=== PATIENT | female | born 1955 | race Caucasian/White ===

== ENCOUNTER 2016-12-12 15:38 | Inpatient (IN) | payer MEDICARE ==
[2016-12-12 17:22] LABS: Basophils % (Auto) 0.3 % (0.0-1.8); Eosinophils % (Auto) 0.7 % (0.0-4.3); Hematocrit 29.3 % (30.3-42.9); Hemoglobin 9.6 gm/dl (10.1-14.3); Mean Corpuscular HGB Conc 33 % (30-34); Mean Corpuscular Hemoglobin 31 pg (28-32); Mean Corpuscular Volume 94 fl (79-97); Platelet Count 145 K/mm3 (140-440); Red Cell Distribution Width 15.5 % (13.2-15.2); White Blood Count 6.8 K/mm3 (4.5-11.0)
--- NOTE | 2016-12-12 17:47 | Emergency Department Report ---
ED General Adult HPI - General Chief complaint: Altered Mental Status Stated complaint: AMS Time Seen by Provider: 12/12/16 17:36 Source: family, EMS Mode of arrival: Stretcher Limitations: Language Barrier - History of Present Illness Initial comments: Patient is a 61-year-old female past medical history of end-stage renal disease diabetes and hypertension who presents with hyper glycemia and altered mental status. History is obtained by daughter. History of some noted due to patient' s condition. Patient's granddaughter states that patient was only arousable to tactile stimuli she states that she doesn't know if her grandmother took any medications today and it she was moaning. Patient gets dialysis Thursday and she got dialysis on . Patient is [place]- speaking and responds when her granddaughter talks her. - Related Data Home Medications Medication Instructions Recorded Confirmed Last Taken Aspirin [Aspirin EC] 81 mg PO DAILY 12/12/16 12/12/16 Unknown AtorvaSTATin [Lipitor] 40 mg PO QHS 12/12/16 12/12/16 Unknown Carvedilol [Coreg] 12.5 mg PO BID 12/12/16 12/12/16 Unknown Furosemide [Lasix TAB] 40 mg PO BID 12/12/16 12/12/16 Unknown Gabapentin [Neurontin] 100 mg PO TID 12/12/16 12/12/16 Unknown ISOSORBIDE MONOnitrate [Imdur ER] 30 mg PO DAILY 12/12/16 12/12/16 12/12/16 Lisinopril [Zestril TAB] 20 tab PO DAILY 12/12/16 12/12/16 Unknown Plavix 75 mg PO DAILY 12/12/16 12/12/16 Unknown Ranitidine HCl [Zantac 150 MG TAB] 150 mg PO DAILY 12/12/16 12/12/16 Unknown Sevelamer Carbonate [Renvela] 800 mg PO AC 12/12/16 12/12/16 Unknown Spironolactone [Aldactone] 25 mg PO DAILY 12/12/16 12/12/16 Unknown dimenhyDRINATE [Motion Sickness] 50 mg PO DAILY 12/12/16 12/12/16 Unknown Allergies Allergy/AdvReac Type Severity Reaction Status Date / Time No Known Allergies Allergy Verified 12/12/16 16:18 ED Review of Systems ROS: Stated complaint: AMS Other details as noted in HPI Comment: Unobtainable due to pts medical conditions (altered mental status) ED Past Medical Hx - Past Medical History Previous Medical History?: Yes Hx Hypertension: Yes Hx CVA: Yes Hx Heart Attack/AMI: (Medically managed with no recent changes) Hx Congestive Heart Failure: Yes Hx Diabetes: Yes Hx Deep Vein Thrombosis: No Hx GERD: Yes Hx Liver Disease: No Hx Renal Disease: Yes Hx Sickle Cell Disease: No Hx Arthritis: Yes Hx Headaches / Migraines: Yes Hx Seizures: No Hx Asthma: No Hx COPD: No Hx HIV: No Additional medical history: GLAUCOMA. ANEMIA - Surgical History Hx Coronary Stent: No Hx Open Heart Surgery: No Hx Pacemaker: No Hx Internal Defibrillator: No Hx Cholecystectomy: No Hx Appendectomy: No Hx Breast Surgery: No Additional Surgical History: lung surgery (loculated pleural effusion? ), Cataract surgery - Social History Smoking Status: Never Smoker Substance Use Type: None - Medications Home Medications: Home Medications Medication Instructions Recorded Confirmed Last Taken Type Aspirin [Aspirin EC] 81 mg PO DAILY 12/12/16 12/12/16 Unknown History AtorvaSTATin [Lipitor] 40 mg PO QHS 12/12/16 12/12/16 Unknown History Carvedilol [Coreg] 12.5 mg PO BID 12/12/16 12/12/16 Unknown History Furosemide [Lasix TAB] 40 mg PO BID 12/12/16 12/12/16 Unknown History Gabapentin [Neurontin] 100 mg PO TID 12/12/16 12/12/16 Unknown History ISOSORBIDE MONOnitrate [Imdur ER] 30 mg PO DAILY 12/12/16 12/12/16 12/12/16 History Lisinopril [Zestril TAB] 20 tab PO DAILY 12/12/16 12/12/16 Unknown History Plavix 75 mg PO DAILY 12/12/16 12/12/16 Unknown History Ranitidine HCl [Zantac 150 MG TAB] 150 mg PO DAILY 12/12/16 12/12/16 Unknown History Sevelamer Carbonate [Renvela] 800 mg PO AC 12/12/16 12/12/16 Unknown History Spironolactone [Aldactone] 25 mg PO DAILY 12/12/16 12/12/16 Unknown History dimenhyDRINATE [Motion Sickness] 50 mg PO DAILY 12/12/16 12/12/16 Unknown History ED Physical Exam - General Limitations: Language Barrier General appearance: in no apparent distress, lethargic - Head Head exam: Present: atraumatic, normocephalic - Eye Eye exam: Present: normal appearance - ENT ENT exam: Present: mucous membranes moist - Neck Neck exam: Present: other (right neck swelling) - Respiratory Respiratory exam: Present: normal lung sounds bilaterally. Absent: respiratory distress - Cardiovascular Cardiovascular Exam: Present: regular rate, normal rhythm. Absent: systolic murmur, diastolic murmur, rubs, gallop - GI/Abdominal GI/Abdominal exam: Present: soft, normal bowel sounds - Extremities Exam Extremities exam: Present: other (left AV fistula) - Back Exam Back exam: Present: normal inspection - Neurological Exam Neurological exam: Present: altered - Psychiatric Psychiatric exam: Present: other (altered) - Skin Skin exam: Present: other (right heel dry gangrene). Absent: rash ED Course Vital Signs 12/12/16 12/12/16 12/12/16 18:01 18:15 18:30 Temperature Pulse Rate 63 68 63 Respiratory 17 17 15 Rate Blood Pressure 145/67 160/83 Blood Pressure [Left] O2 Sat by Pulse 100 100 100 Oximetry 12/12/16 12/12/16 12/12/16 18:45 19:21 19:30 Temperature Pulse Rate 62 63 64 Respiratory 20 28 H 15 Rate Blood Pressure 154/76 163/91 Blood Pressure [Left] O2 Sat by Pulse 100 100 100 Oximetry 12/12/16 12/12/16 12/12/16 19:45 20:01 20:15 Temperature Pulse Rate 64 65 64 Respiratory 14 14 15 Rate Blood Pressure 155/81 148/80 158/86 Blood Pressure [Left] O2 Sat by Pulse 100 100 100 Oximetry 12/12/16 12/12/16 12/12/16 20:25 20:31 20:45 Temperature Pulse Rate 64 65 65 Respiratory 11 L 14 Rate Blood Pressure 164/86 151/72 Blood Pressure [Left] O2 Sat by Pulse 99 100 Oximetry 12/12/16 12/12/16 12/12/16 21:00 21:15 21:21 Temperature 97.1 F L Pulse Rate 65 65 64 Respiratory 16 14 16 Rate Blood Pressure 161/108 171/90 Blood Pressure 163/84 [Left] O2 Sat by Pulse 100 100 100 Oximetry ED Medical Decision Making - Lab Data Result diagrams: 12/12/16 16:44 12/12/16 16:44 Labs 12/12/16 12/12/16 12/12/16 16:44 16:44 16:44 WBC 6.8 RBC 3.10 L Hgb 9.6 L Hct 29.3 L MCV 94 MCH 31 MCHC 33 RDW 15.5 H Plt Count 145 Lymph % (Auto) 13.8 [place] % (Auto) 6.4 Eos % (Auto) 0.7 Baso % (Auto) 0.3 Lymph # 0.9 L [place] # 0.4 Eos # 0.1 Baso # 0.0 Seg Neutrophils % 78.8 H Seg Neutrophils # 5.4 Sodium 129 L Potassium 5.1 H Chloride 86.6 L Carbon Dioxide 29 Anion Gap 19 BUN 39 H Creatinine 4.2 H Estimated GFR 11 BUN/Creatinine Ratio 9 Glucose 489 H POC Glucose Lactic Acid 1.40 Calcium 8.7 Magnesium 2.00 Total Bilirubin 0.30 AST 22 ALT 12 Alkaline Phosphatase 107 Total Protein 6.2 L Albumin 3.3 L Albumin/Globulin Ratio 1.1 TSH Urine Color Urine Turbidity Urine pH Ur Specific [place] Urine Protein Urine Glucose (UA) Urine Ketones Urine Blood Urine Nitrite Urine Bilirubin Urine Urobilinogen Ur Leukocyte Esterase Urine WBC (Auto) Urine RBC (Auto) Salicylates Urine Opiates Screen Urine Methadone Screen Acetaminophen Ur Barbiturates Screen Ur Phencyclidine Scrn Ur Amphetamines Screen U Benzodiazepines Scrn Urine Cocaine Screen U Marijuana (THC) Screen Drugs of Abuse Note Plasma/Serum Alcohol 12/12/16 12/12/16 12/12/16 16:44 16:44 16:44 WBC RBC Hgb Hct MCV MCH MCHC RDW Plt Count Lymph % (Auto) [place] % (Auto) Eos % (Auto) Baso % (Auto) Lymph # [place] # Eos # Baso # Seg Neutrophils % Seg Neutrophils # Sodium Potassium Chloride Carbon Dioxide Anion Gap BUN Creatinine Estimated GFR BUN/Creatinine Ratio Glucose POC Glucose Lactic Acid Calcium Magnesium Total Bilirubin AST ALT Alkaline Phosphatase Total Protein Albumin Albumin/Globulin Ratio TSH 3.850 Urine Color Urine Turbidity Urine pH Ur Specific [place] Urine Protein Urine Glucose (UA) Urine Ketones Urine Blood Urine Nitrite Urine Bilirubin Urine Urobilinogen Ur Leukocyte Esterase Urine WBC (Auto) Urine RBC (Auto) Salicylates < 0.3 L Urine Opiates Screen Urine Methadone Screen Acetaminophen < 15.0 Ur Barbiturates Screen Ur Phencyclidine Scrn Ur Amphetamines Screen U Benzodiazepines Scrn Urine Cocaine Screen U Marijuana (THC) Screen Drugs of Abuse Note Plasma/Serum Alcohol 12/12/16 12/12/16 12/12/16 16:44 18:19 19:16 WBC RBC Hgb Hct MCV MCH MCHC RDW Plt Count Lymph % (Auto) [place] % (Auto) Eos % (Auto) Baso % (Auto) Lymph # [place] # Eos # Baso # Seg Neutrophils % Seg Neutrophils # Sodium Potassium Chloride Carbon Dioxide Anion Gap BUN Creatinine Estimated GFR BUN/Creatinine Ratio Glucose POC Glucose 418 H Lactic Acid 1.30 Calcium Magnesium Total Bilirubin AST ALT Alkaline Phosphatase Total Protein Albumin Albumin/Globulin Ratio TSH Urine Color Urine Turbidity Urine pH Ur Specific [place] Urine Protein Urine Glucose (UA) Urine Ketones Urine Blood Urine Nitrite Urine Bilirubin Urine Urobilinogen Ur Leukocyte Esterase Urine WBC (Auto) Urine RBC (Auto) Salicylates Urine Opiates Screen Urine Methadone Screen Acetaminophen Ur Barbiturates Screen Ur Phencyclidine Scrn Ur Amphetamines Screen U Benzodiazepines Scrn Urine Cocaine Screen U Marijuana (THC) Screen Drugs of Abuse Note Plasma/Serum Alcohol < 0.01 12/12/16 12/12/16 12/12/16 20:15 Unknown Unknown WBC RBC Hgb Hct MCV MCH MCHC RDW Plt Count Lymph % (Auto) [place] % (Auto) Eos % (Auto) Baso % (Auto) Lymph # [place] # Eos # Baso # Seg Neutrophils % Seg Neutrophils # Sodium Potassium Chloride Carbon Dioxide Anion Gap BUN Creatinine Estimated GFR BUN/Creatinine Ratio Glucose POC Glucose 417 H Lactic Acid Calcium Magnesium Total Bilirubin AST ALT Alkaline Phosphatase Total Protein Albumin Albumin/Globulin Ratio TSH Urine Color Yellow Urine Turbidity Clear Urine pH 7.0 Ur Specific [place] 1.017 Urine Protein >500 Urine Glucose (UA) >=500 Urine Ketones Neg Urine Blood Neg Urine Nitrite Neg Urine Bilirubin Neg Urine Urobilinogen < 2.0 Ur Leukocyte Esterase Neg Urine WBC (Auto) < 1.0 Urine RBC (Auto) < 1.0 Salicylates Urine Opiates Screen Presumptive negative Urine Methadone Screen Presumptive negative Acetaminophen Ur Barbiturates Screen Presumptive negative Ur Phencyclidine Scrn Presumptive negative Ur Amphetamines Screen Presumptive negative U Benzodiazepines Scrn Presumptive negative Urine Cocaine Screen Presumptive negative U Marijuana (THC) Screen Presumptive negative Drugs of Abuse Note Disclamer Plasma/Serum Alcohol - EKG Data -: EKG Interpreted by Me - EKG Data 12/12/16 21:55 EKG shows sinus rhythm, LVH with secondary pole abnormality no peaked T waves no ST segment elevation normal axis. 12/12/16 21:56 - Radiology Data Radiology results: report reviewed, image reviewed Chest x-ray: Shows cardiomegaly and mid left lung effusion CT head: Shows no acute intracranial abnormality atrophy and chronic ischemic vessel disease. - Medical Decision Making Chief medical diagnosis: Metabolic encephalopathy Differential medical diagnosis: Subdural hemorrhage, hyperglycemia, DKA, pneumonia next CBC, CMP, EKG, troponin,, IV antibiotics, IV insulin and point of care glucose. Patient will need admission to the hospital patient most likely has metabolic encephalopathy due to hyperglycemia on repeat blood glucose testing patient spoke a first is still elevated we'll give patient for IV insulin discussed with Dr. billingsley the hospitalist patient will be admitted also discussed with patient's family they agree with plan. Patient will also need dialysis Thursday she does not need urgent dialysis as her potassium is only 5.1. The patient having left pleural effusion that is not seen on prior chest x-ray I will empirically treat patient for HCAP. Critical care attestation.: If time is entered above; I have spent that time in minutes in the direct care of this critically ill patient, excluding procedure time. ED Disposition Clinical Impression: Metabolic encephalopathy, ESRD on hemodialysis, Hyperglycemia, HCAP (healthcare -associated pneumonia) Type 2 diabetes mellitus Qualifiers: Diabetes mellitus complication status: without complication Diabetes mellitus usp insulin use: unspecified usp insulin use status Qualified Code(s ): E11.9 - Type 2 diabetes mellitus without complications Disposition: OP ADMIT IP TO THIS HOSP Is pt being admited?: Yes Does the pt Need Aspirin: No Condition: Stable Instructions: Diabetes Mellitus Type 2 in Adults (ED), Bacterial Pneumonia (ED) Referrals: PRIMARY CARE, [Primary Care Provider] - 3-5 Days
[2016-12-12 18:09] LABS: Albumin 3.3 g/dL (3.9-5); Albumin/Globulin Ratio 1.1 %; Bilirubin,Total 0.3 mg/dL (0.1-1.2); Calcium 8.7 mg/dL (8.4-10.2); Chloride 86.6 mmol/L (98-107); Potassium 5.1 mmol/L (3.6-5.0); Total Protein 6.2 g/dL (6.3-8.2)
--- NOTE | 2016-12-12 19:49 | Cat Scan Report ---
FINAL REPORT EXAM: CT HEAD/BRAIN WO CON HISTORY: altered mental status TECHNIQUE: Noncontrast CT axial images of the brain. PRIORS: None. FINDINGS: No parenchymal mass, mass effect, hemorrhage, midline shift or hydrocephalus. No evidence of acute cortical infarct. No abnormal, extra-axial fluid or air collection. Mild, patchy low density in the periventricular and subcortical white matter is nonspecific, but may relate to chronic small vessel ischemic change. Probable old lacunar infarct changes in the pontine region. Age-related volume loss. Osseous calvarium grossly intact. Possible mucous retention cyst versus polyp in the in the right inferior maxillary sinus or possible cystic versus solid entity of dental origin. Clinical correlation and followup may be warranted. IMPRESSION: 1. No acute intracranial findings. 2. Chronic ischemic and atrophic changes.
[2016-12-12 21:11] LABS: Urine Drugs of Abuse Note Disclamer
[2016-12-12 21:18] LABS: Bilirubin,Urine NEG (Negative); Blood,Urine NEG (Negative); Ketones,Urine NEG (Negative); Leukocyte Esterase,Urine NEG (Negative); Nitrite,Urine NEG (Negative); RBC,Urine < 1.0 /HPF (0.0-6.0); Urobilinogen,Urine < 2.0 mg/dL (<2.0); WBC,Urine < 1.0 /HPF (0.0-6.0)
[2016-12-12 21:19] LABS: Protein,Urine >500 mg/dL (Negative)
--- NOTE | 2016-12-12 21:50 | History and Physical Report ---
History of Present Illness Date of examination: 12/12/16 Chief complaint: Altered mental status History of present illness: Patient speak only and history is obtained from her granddaughter 61-year-old female with past medical history significant for end-stage renal disease on hemodialysis, diabetes mellitus, hypertension, CHF presented to the emergency department for the c/o altered mental status that happened around midday. All of a sudden the patient stopped responding, there is no seizure activity, no drooling with saliva, not incontinent, but had slurred speech after that. That has been going on for about 10 minutes. Patient normally doesn't ambulate and her upper and lower extremities are weak. REVIEW OF SYSTEMS: GENERAL: no weight change, no fatigue, no fever HEAD: no head ache EYES: no blurry vision, no acute visual loss EARS: no hearing loss, no discharge, no earache NOSE: no stuffiness, no sneezing, no discharge MOUTH, THROAT AND NECK: no bleeding gums, no sore throat, no swollen neck CARDIAC: no palpitations, no dyspnea on exertion, no orthopnea, no PND, no edema , no chest pain RESPIRATORY: no shortness of breath, no wheeze, no cough, no sputum, no hemoptysis, no asthma GI: no decreased appetite, no nausea, no vomiting, no dysphagia, no diarrhea, no constipation, no abdominal pain URINARY: no change in frequency, no urgency, no polyuria, no hematuria, no incontinence MUSCULOSKELETAL: no muscle weakness, no pain, no joint stiffness NEUROLOGIC: AMS HEMATOLOGIC: no anemia, no easy bruising SKIN: no rashes ENDOCRINE: no heat/cold intolerance, no polyuria, no polydipsia, no thyroid problems, no diabetes PSYCHIATRIC: no anxiety, no depression, no suicidal ideations Past History Past Medical History: ESRD, heart failure, hypertension Past Surgical History: Other (AVF, port cath) Social history: no significant social history Medications and Allergies Allergies Allergy/AdvReac Type Severity Reaction Status Date / Time No Known Allergies Allergy Verified 12/12/16 16:18 Home Medications Medication Instructions Recorded Confirmed Last Taken Type Aspirin [Aspirin EC] 81 mg PO DAILY 12/12/16 12/12/16 Unknown History AtorvaSTATin [Lipitor] 40 mg PO QHS 12/12/16 12/12/16 Unknown History Carvedilol [Coreg] 12.5 mg PO BID 12/12/16 12/12/16 Unknown History Furosemide [Lasix TAB] 40 mg PO BID 12/12/16 12/12/16 Unknown History Gabapentin [Neurontin] 100 mg PO TID 12/12/16 12/12/16 Unknown History ISOSORBIDE MONOnitrate [Imdur ER] 30 mg PO DAILY 12/12/16 12/12/16 12/12/16 History Lisinopril [Zestril TAB] 20 tab PO DAILY 12/12/16 12/12/16 Unknown History Plavix 75 mg PO DAILY 12/12/16 12/12/16 Unknown History Ranitidine HCl [Zantac 150 MG TAB] 150 mg PO DAILY 12/12/16 12/12/16 Unknown History Sevelamer Carbonate [Renvela] 800 mg PO AC 12/12/16 12/12/16 Unknown History Spironolactone [Aldactone] 25 mg PO DAILY 12/12/16 12/12/16 Unknown History dimenhyDRINATE [Motion Sickness] 50 mg PO DAILY 12/12/16 12/12/16 Unknown History Exam - Physical Exam Narrative exam: Not in cardiopulmonary distress. The patient appeared well nourished and normally developed. Vital signs as documented. Head exam is unremarkable. No scleral icterus . Neck is without jugular venous distension, thyromegaly, or carotid bruits. Lungs are clear to auscultation. Cardiac exam reveals regular rate and Rhythm. First and second heart sounds normal. No murmurs, rubs or gallops. Abdominal exam reveals normal bowel sounds, no masses, no organomegaly and no aortic enlargement. Extremities are nonedematous and both femoral and pedal pulses are normal. GEL[employer] UTILITY: patient is oriented to place and person. - Constitutional Vitals: Temp Pulse Resp BP Pulse Ox 97.1 F L 64 16 163/84 100 12/12/16 21:21 12/12/16 21:21 12/12/16 21:21 12/12/16 21:21 12/12/16 21:21 Results - Labs CBC & Chem 7: 12/12/16 16:44 12/12/16 16:44 Labs: Laboratory Last Values WBC 6.8 K/mm3 (4.5-11.0) 12/12/16 16:44 RBC 3.10 M/mm3 (3.65-5.03) L 12/12/16 16:44 Hgb 9.6 gm/dl (10.1-14.3) L 12/12/16 16:44 Hct 29.3 % (30.3-42.9) L 12/12/16 16:44 MCV 94 fl (79-97) 12/12/16 16:44 MCH 31 pg (28-32) 12/12/16 16:44 MCHC 33 % (30-34) 12/12/16 16:44 RDW 15.5 % (13.2-15.2) H 12/12/16 16:44 Plt Count 145 K/mm3 (140-440) 12/12/16 16:44 Lymph % (Auto) 13.8 % (13.4-35.0) 12/12/16 16:44 [place] % (Auto) 6.4 % (0.0-7.3) 12/12/16 16:44 Eos % (Auto) 0.7 % (0.0-4.3) 12/12/16 16:44 Baso % (Auto) 0.3 % (0.0-1.8) 12/12/16 16:44 Lymph # 0.9 K/mm3 (1.2-5.4) L 12/12/16 16:44 [place] # 0.4 K/mm3 (0.0-0.8) 12/12/16 16:44 Eos # 0.1 K/mm3 (0.0-0.4) 12/12/16 16:44 Baso # 0.0 K/mm3 (0.0-0.1) 12/12/16 16:44 Seg Neutrophils % 78.8 % (40.0-70.0) H 12/12/16 16:44 Seg Neutrophils # 5.4 K/mm3 (1.8-7.7) 12/12/16 16:44 Sodium 129 mmol/L (137-145) L 12/12/16 16:44 Potassium 5.1 mmol/L (3.6-5.0) H 12/12/16 16:44 Chloride 86.6 mmol/L (98-107) L 12/12/16 16:44 Carbon Dioxide 29 mmol/L (22-30) 12/12/16 16:44 Anion Gap 19 mmol/L 12/12/16 16:44 BUN 39 mg/dL (7-17) H 12/12/16 16:44 Creatinine 4.2 mg/dL (0.7-1.2) H 12/12/16 16:44 Estimated GFR 11 ml/min 12/12/16 16:44 BUN/Creatinine Ratio 9 % 12/12/16 16:44 Glucose 489 mg/dL (65-100) H 12/12/16 16:44 POC Glucose 417 (70-105) H 12/12/16 20:15 Lactic Acid 1.30 mmol/L (0.7-2.0) 12/12/16 19:16 Calcium 8.7 mg/dL (8.4-10.2) 12/12/16 16:44 Magnesium 2.00 mg/dL (1.7-2.3) 12/12/16 16:44 Total Bilirubin 0.30 mg/dL (0.1-1.2) 12/12/16 16:44 AST 22 units/L (5-40) 12/12/16 16:44 ALT 12 units/L (7-56) 12/12/16 16:44 Alkaline Phosphatase 107 units/L (35-129) 12/12/16 16:44 Total Protein 6.2 g/dL (6.3-8.2) L 12/12/16 16:44 Albumin 3.3 g/dL (3.9-5) L 12/12/16 16:44 Albumin/Globulin Ratio 1.1 % 12/12/16 16:44 TSH 3.850 mlU/mL (0.270-4.200) 12/12/16 16:44 Urine Color Yellow (Yellow) 12/12/16 Unknown Urine Turbidity Clear (Clear) 12/12/16 Unknown Urine pH 7.0 (5.0-7.0) 12/12/16 Unknown Ur Specific [place] 1.017 (1.003-1.030) 12/12/16 Unknown Urine Protein >500 mg/dL (Negative) 12/12/16 Unknown Urine Glucose (UA) >=500 mg/dL (Negative) 12/12/16 Unknown Urine Ketones Neg mg/dL (Negative) 12/12/16 Unknown Urine Blood Neg (Negative) 12/12/16 Unknown Urine Nitrite Neg (Negative) 12/12/16 Unknown Urine Bilirubin Neg (Negative) 12/12/16 Unknown Urine Urobilinogen < 2.0 mg/dL (<2.0) 12/12/16 Unknown Ur Leukocyte Esterase Neg (Negative) 12/12/16 Unknown Urine WBC (Auto) < 1.0 /HPF (0.0-6.0) 12/12/16 Unknown Urine RBC (Auto) < 1.0 /HPF (0.0-6.0) 12/12/16 Unknown Salicylates < 0.3 mg/dL (2.8-20.0) L 12/12/16 16:44 Urine Opiates Screen Presumptive negative 12/12/16 Unknown Urine Methadone Screen Presumptive negative 12/12/16 Unknown Acetaminophen < 15.0 ug/mL (10.0-30.0) 12/12/16 16:44 Ur Barbiturates Screen Presumptive negative 12/12/16 Unknown Ur Phencyclidine Scrn Presumptive negative 12/12/16 Unknown Ur Amphetamines Screen Presumptive negative 12/12/16 Unknown U Benzodiazepines Scrn Presumptive negative 12/12/16 Unknown Urine Cocaine Screen Presumptive negative 12/12/16 Unknown U Marijuana (THC) Screen Presumptive negative 12/12/16 Unknown Drugs of Abuse Note Disclamer 12/12/16 Unknown Plasma/Serum Alcohol < 0.01 gm% (0-0.07) 12/12/16 16:44 Assessment and Plan Assessment and plan: Metabolic encephalopathy TIA ESRD on hemodialysis DM with hyperglycemia CHF, unspecied HTN - CT head is significant for chronic ischemic changes - MRI, carotid Doppler, echo pending, neurology consulted - Nephrology consulted for hemodialysis - Resume appropriate medications - Sliding-scale insulin, basal insulin, Accu-Chek, adjust insulin as needed DVT prophylaxis - Heparin Disposition - Admitted to telemetry floor Advance Directives: Yes VTE prophylaxis?: Chemical Plan of care discussed with patient/family: Yes
[2016-12-12] MEDS ORDERED: ROCEPHIN/NS 1 GM/50 ML 1 GM/50 ML BAG IV ONE (21:58)
[2016-12-12] MEDS ORDERED: VANCOMYCIN VIAL IV ONE (21:58)
[2016-12-12] MEDS ORDERED: VANCOMYCIN PHARMACY TO DOSE IV SCH (22:00)
[2016-12-12] MEDS ORDERED: MILK OF MAGNESIA PO PRN (23:38)
[2016-12-12] MEDS ORDERED: SODIUM CHLORIDE FLUSH SYRINGE 10 ML IV PRN (23:38)
[2016-12-12] MEDS ORDERED: TYLENOL PO PRN (23:38)
[2016-12-12] MEDS ORDERED: PHENERGAN PR PRN (23:38)
[2016-12-12] MEDS ORDERED: ZOFRAN IV PRN (23:38)
[2016-12-12] MEDS ORDERED: DULCOLAX PR PRN (23:38)
[2016-12-12] MEDS ORDERED: REGLAN PO PRN (23:38)
[2016-12-13] MEDS ORDERED: D50W (25GM) Vial IV PRN (00:45)
[2016-12-13] MEDS ORDERED: VANCOMYCIN/NS 1 GM/250 ML 1 GM/250 ML BAG IV ONE ×2 (05:00)
--- NOTE | 2016-12-13 09:05 | Progress Note ---
Assessment and Plan Assessment and plan: 61-year-old female with past medical history significant for end-stage renal disease on hemodialysis, diabetes mellitus, hypertension, CHF presented to the emergency department for the c/o altered mental status that happened around midday. All of a sudden the patient stopped responding, there is no seizure activity, no drooling with saliva, not incontinent, but had slurred speech after that. That has been going on for about 10 minutes. Patient normally doesn't ambulate and her upper and lower extremities are weak. Metabolic encephalopathy-improved Hyponatremia-improving TIA ESRD on hemodialysis DM with hyperglycemia Chronic appearing bilateral leg wound with no infection- I spoke with daughter who states patient has a court reporter that cares for the feet and is aware of the wound. CHF, unspecified HTN - CT head is significant for chronic ischemic changes - Will contnue ASA and statin. - Stop abx, no evidence of infection,. Chest xray concerning for fluid overload. - CONTINUE LASIX, ALDACTONE - Wound care consult - MRI, carotid Doppler, echo pending, neurology consulted - Nephrology consulted for hemodialysis - Resume appropriate medications - Sliding-scale insulin, basal insulin, Accu-Chek, adjust insulin as needed DVT prophylaxis - Heparin Disposition - Discharge in AM if continues to improve History Interval history: Patient seen and examined today in no acute distress. she is now verabal and moving extermities. Hospitalist Physical - Physical exam Narrative exam: VITAL SIGNS: Reviewed. GENERAL: The patient appeared well nourished and normally developed. Vital signs as documented. HEAD: No signs of head trauma. EYES: Pupils are equal. Extraocular motions intact. EARS: Hearing grossly intact. MOUTH: Oropharynx is normal. NECK: No adenopathy, no JVD. CHEST: Chest with clear breath sounds bilaterally. No wheezes, rales, or rhonchi. CARDIAC: Regular rate and rhythm. S1 and S2, without murmurs, gallops, or rubs. VASCULAR: No Edema. Peripheral pulses normal and equal in all extremities. ABDOMEN: Soft, without detectable tenderness. No sign of distention. No rebound or guarding, and no masses palpated. Bowel Sounds normal. MUSCULOSKELETAL: Good range of motion of all major joints. Extremities without clubbing, cyanosis or edema. NEUROLOGIC EXAM: Alert and oriented x 3. No focal sensory or strength deficits. Speech normal. Follows commands. PSYCHIATRIC: Mood normal. SKIN: b/l heel necrotic tissue with no erythema, - Constitutional Vitals: Temp Pulse Resp BP Pulse Ox 99.3 F 70 18 158/81 96 12/13/16 05:24 12/13/16 05:24 12/13/16 05:24 12/13/16 05:24 12/13/16 05:24 Results - Labs CBC & Chem 7: 12/12/16 16:44 12/12/16 16:44 Labs: Laboratory Last Values WBC 6.8 K/mm3 (4.5-11.0) 12/12/16 16:44 RBC 3.10 M/mm3 (3.65-5.03) L 12/12/16 16:44 Hgb 9.6 gm/dl (10.1-14.3) L 12/12/16 16:44 Hct 29.3 % (30.3-42.9) L 12/12/16 16:44 MCV 94 fl (79-97) 12/12/16 16:44 MCH 31 pg (28-32) 12/12/16 16:44 MCHC 33 % (30-34) 12/12/16 16:44 RDW 15.5 % (13.2-15.2) H 12/12/16 16:44 Plt Count 145 K/mm3 (140-440) 12/12/16 16:44 Lymph % (Auto) 13.8 % (13.4-35.0) 12/12/16 16:44 [place] % (Auto) 6.4 % (0.0-7.3) 12/12/16 16:44 Eos % (Auto) 0.7 % (0.0-4.3) 12/12/16 16:44 Baso % (Auto) 0.3 % (0.0-1.8) 12/12/16 16:44 Lymph # 0.9 K/mm3 (1.2-5.4) L 12/12/16 16:44 [place] # 0.4 K/mm3 (0.0-0.8) 12/12/16 16:44 Eos # 0.1 K/mm3 (0.0-0.4) 12/12/16 16:44 Baso # 0.0 K/mm3 (0.0-0.1) 12/12/16 16:44 Seg Neutrophils % 78.8 % (40.0-70.0) H 12/12/16 16:44 Seg Neutrophils # 5.4 K/mm3 (1.8-7.7) 12/12/16 16:44 Sodium 129 mmol/L (137-145) L 12/12/16 16:44 Potassium 5.1 mmol/L (3.6-5.0) H 12/12/16 16:44 Chloride 86.6 mmol/L (98-107) L 12/12/16 16:44 Carbon Dioxide 29 mmol/L (22-30) 12/12/16 16:44 Anion Gap 19 mmol/L 12/12/16 16:44 BUN 39 mg/dL (7-17) H 12/12/16 16:44 Creatinine 4.2 mg/dL (0.7-1.2) H 12/12/16 16:44 Estimated GFR 11 ml/min 12/12/16 16:44 BUN/Creatinine Ratio 9 % 12/12/16 16:44 Glucose 489 mg/dL (65-100) H 12/12/16 16:44 POC Glucose 305 (70-105) H 12/12/16 22:55 Lactic Acid 1.30 mmol/L (0.7-2.0) 12/12/16 19:16 Calcium 8.7 mg/dL (8.4-10.2) 12/12/16 16:44 Magnesium 2.00 mg/dL (1.7-2.3) 12/12/16 16:44 Total Bilirubin 0.30 mg/dL (0.1-1.2) 12/12/16 16:44 AST 22 units/L (5-40) 12/12/16 16:44 ALT 12 units/L (7-56) 12/12/16 16:44 Alkaline Phosphatase 107 units/L (35-129) 12/12/16 16:44 Total Protein 6.2 g/dL (6.3-8.2) L 12/12/16 16:44 Albumin 3.3 g/dL (3.9-5) L 12/12/16 16:44 Albumin/Globulin Ratio 1.1 % 12/12/16 16:44 Triglycerides 97 mg/dL (2-149) 12/13/16 03:38 Cholesterol 107 mg/dL (50-199) 12/13/16 03:38 LDL Cholesterol Direct 53 mg/dL (50-130) 12/13/16 03:38 HDL Cholesterol 35 mg/dL (40-59) L 12/13/16 03:38 Cholesterol/HDL Ratio 3.05 % 12/13/16 03:38 TSH 3.850 mlU/mL (0.270-4.200) 12/12/16 16:44 Urine Color Yellow (Yellow) 12/12/16 Unknown Urine Turbidity Clear (Clear) 12/12/16 Unknown Urine pH 7.0 (5.0-7.0) 12/12/16 Unknown Ur Specific [place] 1.017 (1.003-1.030) 12/12/16 Unknown Urine Protein >500 mg/dL (Negative) 12/12/16 Unknown Urine Glucose (UA) >=500 mg/dL (Negative) 12/12/16 Unknown Urine Ketones Neg mg/dL (Negative) 12/12/16 Unknown Urine Blood Neg (Negative) 12/12/16 Unknown Urine Nitrite Neg (Negative) 12/12/16 Unknown Urine Bilirubin Neg (Negative) 12/12/16 Unknown Urine Urobilinogen < 2.0 mg/dL (<2.0) 12/12/16 Unknown Ur Leukocyte Esterase Neg (Negative) 12/12/16 Unknown Urine WBC (Auto) < 1.0 /HPF (0.0-6.0) 12/12/16 Unknown Urine RBC (Auto) < 1.0 /HPF (0.0-6.0) 12/12/16 Unknown Salicylates < 0.3 mg/dL (2.8-20.0) L 12/12/16 16:44 Urine Opiates Screen Presumptive negative 12/12/16 Unknown Urine Methadone Screen Presumptive negative 12/12/16 Unknown Acetaminophen < 15.0 ug/mL (10.0-30.0) 12/12/16 16:44 Ur Barbiturates Screen Presumptive negative 12/12/16 Unknown Ur Phencyclidine Scrn Presumptive negative 12/12/16 Unknown Ur Amphetamines Screen Presumptive negative 12/12/16 Unknown U Benzodiazepines Scrn Presumptive negative 12/12/16 Unknown Urine Cocaine Screen Presumptive negative 12/12/16 Unknown U Marijuana (THC) Screen Presumptive negative 12/12/16 Unknown Drugs of Abuse Note Disclamer 12/12/16 Unknown Plasma/Serum Alcohol < 0.01 gm% (0-0.07) 12/12/16 16:44 - Imaging and Cardiology CT Scan - head: image reviewed (negative for acute pathology)
--- NOTE | 2016-12-13 09:49 | Consultation ---
History of Present Illness - Reason for Consult Consult date: 12/13/16 end stage renal disease - History of Present Illness This is a 61 year old Turkmen speaking female who presented to this E.R yesterday for a chief complaint of Altered Mental Status that began at 2:[address] of head is negative thus far. Neurology has been consulted. Patient has ESRD and is due for hemodialysis today. Outpatient HD schedule is T,T,S at [facility]. We are being consulted for management of this patient's ESRD. Past History Past Medical History: ESRD, heart failure, hypertension Past Surgical History: Other (AVF, port cath) Social history: no significant social history Medications and Allergies Allergies Allergy/AdvReac Type Severity Reaction Status Date / Time No Known Allergies Allergy Verified 12/12/16 16:18 Home Medications Medication Instructions Recorded Confirmed Last Taken Type Aspirin [Aspirin EC] 81 mg PO DAILY 12/12/16 12/12/16 Unknown History AtorvaSTATin [Lipitor] 40 mg PO QHS 12/12/16 12/12/16 Unknown History Carvedilol [Coreg] 12.5 mg PO BID 12/12/16 12/12/16 Unknown History Furosemide [Lasix TAB] 40 mg PO BID 12/12/16 12/12/16 Unknown History Gabapentin [Neurontin] 100 mg PO TID 12/12/16 12/12/16 Unknown History ISOSORBIDE MONOnitrate [Imdur ER] 30 mg PO DAILY 12/12/16 12/12/16 12/12/16 History Lisinopril [Zestril TAB] 20 tab PO DAILY 12/12/16 12/12/16 Unknown History Plavix 75 mg PO DAILY 12/12/16 12/12/16 Unknown History Ranitidine HCl [Zantac 150 MG TAB] 150 mg PO DAILY 12/12/16 12/12/16 Unknown History Sevelamer Carbonate [Renvela] 800 mg PO AC 12/12/16 12/12/16 Unknown History Spironolactone [Aldactone] 25 mg PO DAILY 12/12/16 12/12/16 Unknown History dimenhyDRINATE [Motion Sickness] 50 mg PO DAILY 12/12/16 12/12/16 Unknown History Active Meds: Active Medications Acetaminophen (Tylenol) 650 mg PO Q4H PRN PRN Reason: Pain, Mild (1-3) Aspirin (Halfprin Ec) 81 mg PO DAILY [facility] Atorvastatin Calcium (Lipitor) 40 mg PO QHS [facility] Bisacodyl (Dulcolax) 10 mg IN QDAY PRN PRN Reason: Constipation Carvedilol (Coreg) 12.5 mg PO BID [facility] Clopidogrel Bisulfate (Plavix) 75 mg PO DAILY [facility] Dextrose (D50w (25gm) Vial) 50 gm IV PRN PRN PRN Reason: Hypoglycemia Enoxaparin Sodium (Lovenox) 30 mg SUB-Q QDAY [facility] Famotidine (Pepcid) 20 mg PO QAM [facility] Furosemide (Lasix) 40 mg PO BID [facility] Gabapentin (Neurontin) 100 mg PO TID [facility] Insulin Aspart (Novolog) 0 units SUB-Q ACHS [facility] PRN Reason: Protocol Insulin Detemir (Levemir) 20 units SUB-Q QAMDIAB [facility] Isosorbide Mononitrate (Imdur) 30 mg PO DAILY [facility] Lisinopril (Zestril) 20 mg PO DAILY [facility] Magnesium Hydroxide (Milk Of Magnesia) 30 ml PO Q4H PRN PRN Reason: Constipation Metoclopramide HCl (Reglan) 5 mg PO Q6H PRN PRN Reason: Nausea And Vomiting Miscellaneous Medication (Dimenhydrinate [Motion Sickness]) 50 mg PO DAILY [facility] Ondansetron HCl (Zofran) 4 mg IV Q8H PRN PRN Reason: N/V unrelieved by Reglan Promethazine HCl (Phenergan) 25 mg IN Q6H PRN PRN Reason: Nausea And Vomiting Sevelamer Carbonate (Renvela) 800 mg PO AC [facility] Sodium Chloride (Sodium Chloride Flush Syringe 10 Ml) 10 ml IV PRN PRN PRN Reason: LINE FLUSH Spironolactone (Aldactone) 25 mg PO DAILY [facility] Review of Systems Constitutional: no weight loss, no weight gain, no fever, no chills, no sweats Ears, nose, mouth and throat: no ear discharge, no tinnitis, no nose pain, no nasal congestion Cardiovascular: no orthopnea, no palpitations, no rapid/irregular heart beat, no edema, no syncope, no lightheadedness, no shortness of breath Respiratory: no cough with sputum, no hemoptysis, no shortness of breath, no dyspnea on exertion Gastrointestinal: no abdominal pain, no nausea, no diarrhea, no constipation, no change in bowel habits, no hematemesis Genitourinary Female: no pelvic pain, no flank pain, no menorrhagia, no dysuria , no urinary frequency, no urgency Musculoskeletal: no neck stiffness, no neck pain, no shooting arm pain, no arm numbness/tingling, no low back pain, no shooting leg pain, no leg numbness/ tingling Integumentary: no rash, no pruritis, no redness, no sores, no wounds Neurological: no head injury, no transient paralysis, no paralysis, no parathesias, no numbness, no tingling, no seizures Psychiatric: memory loss, no anxiety, no change in sleep habits, no sleep disturbances, no insomnia, no hypersomnia, no change in appetite Endocrine: no cold intolerance, no heat intolerance, no polyphagia, no excessive thirst, no polydipsia, no polyuria Exam - Vital Signs Vital signs: Vital Signs Pulse Resp Pulse Ox 63 17 100 12/12/16 18:01 12/12/16 18:01 12/12/16 18:01 - General Appearance General appearance: well-developed, appears stated age EENT: ATNC, PERRL, hearing intact, vision intact Neck: Present: neck supple, trachea midline Respiratory: Clear to Ascultation Heart: regular, S1S2 Gastrointestinal: Present: normoactive bowel sounds Integumentary: warm and dry Neurologic: other (Patient's grand-daughter at bedside states patient is more herself today. More oriented today.) Musculoskeletal: Absent: deformities, joint swelling Psychiatric: cooperative Results - Lab Results 12/12/16 16:44 12/12/16 16:44 Most recent lab results Calcium 8.7 mg/dL (8.4-10.2) 12/12/16 16:44 Magnesium 2.00 mg/dL (1.7-2.3) 12/12/16 16:44 Assessment and Plan - Patient Problems (1) Altered mental status Current Visit: Yes Status: Acute Qualifiers: Altered mental status type: A Coma depth: C Coma timing: C Plan to address problem: Heat Ct negative Neurology consulted (2) ESRD on hemodialysis Current Visit: Yes Status: Chronic Plan to address problem: Hemodialysis today for UF and clearance Fluid restriction of 1 liter per day Renally dose medications Obtain daily weights Assess dialysis needs daily (3) Type 2 diabetes mellitus Current Visit: Yes Status: Chronic Qualifiers: Diabetes mellitus complication status: without complication Diabetes mellitus complication detail: D Diabetic retinopathy severity: D Proliferative retinopathy type: P Diabetes mellitus macular edema: D Diabetes mellitus termite exterminator helper insulin use: unspecified longterm insulin use status Laterality: L Chronic kidney disease stage: C Qualified Code(s): E11.9 - Type 2 diabetes mellitus without complications Plan to address problem: On Insulin as per Attending (4) Hypertensive CKD (chronic kidney disease) Current Visit: No Status: Chronic Plan to address problem: Blood pressures are stable.
[2016-12-13] MEDS ORDERED: HALFPRIN EC PO SCH (10:00)
[2016-12-13] MEDS ORDERED: DIMENHYDRINATE 50 MG PO SCH (10:00)
[2016-12-13] MEDS ORDERED: ZITHROMAX 500 MG in NACL 0.9% 250ML 250 ML IV SCH (10:00)
--- NOTE | 2016-12-13 10:24 | XRay Report ---
AP CHEST :12/12/16 CLINICAL: Shortness of breath. COMPARISON:08/18/15 FINDINGS: Massive cardiomegaly with an increased heart size compared to the last exam. Pulmonary vessels are indistinct. Prominent multilobar bilateral interstitial opacities. No pulmonary consolidation. The bones and soft tissues are normal.No tubes or lines. IMPRESSION: Cardiomegaly and CHF with interstitial pulmonary edema.
[2016-12-13] MEDS: RENVELA PO SCH ×3 (12:46→18:34)
[2016-12-13] MEDS: NOVOLOG SUB-Q SCH ×3 (12:46→18:33)
[2016-12-13] MEDS: NEURONTIN PO SCH ×3 (12:47→21:39)
[2016-12-13] MEDS: ALDACTONE PO SCH (12:50)
[2016-12-13] MEDS: COREG PO SCH ×2 (12:50→21:40)
[2016-12-13] MEDS: PLAVIX PO SCH (12:50)
[2016-12-13] MEDS: PEPCID PO SCH (12:50)
[2016-12-13] MEDS: LASIX PO SCH ×2 (12:51→21:39)
[2016-12-13] MEDS: ZESTRIL PO SCH (12:51)
[2016-12-13] MEDS: LOVENOX SUB-Q SCH (12:51)
--- NOTE | 2016-12-13 13:26 | Magnetic Resonance Report ---
MRI BRAIN WITHOUT CONTRAST: 12/13/16 CLINICAL: Stroke. TECHNIQUE: Axial diffusion, T1, T2, FLAIR, gradient echo T2*, and sagittal T1 sequences on a 1.5 Kati magnet. FINDINGS: Mild global enlargement of ventricles and sulci for age and moderate bilateral periventricular white matter hyperintensities on FLAIR and T2. A small focus of restricted diffusion in the right cerebellum correlates with abnormal signal in this area on other sequences. Focal T1 and FLAIR hyperintensity in the right cerebellum correlates with hypointensity on the gradient echo sequence and is indicative of tiny hemorrhages. The involved area measures 1.5 cm and this is well delineated on the sagittal T1 sequence. No other restricted diffusion. The right midbrain is small and there is segmental abnormal signal in the right jose which are consistent with old infarcts. No mass or mass effect. No edema or extra-axial collection. Normal pituitary and optic chiasm. Intact vascular flow voids. Normal sinuses. The orbits, and soft tissues are normal. Normal calvarium and skull base. IMPRESSION: 1. Acute/subacute right cerebellar lacunar infarct with petechial hemorrhage versus tiny right cerebellar hemorrhages associated with an underlying vascular lesion such as a cavernous angioma or venous malformation. Recommend MRI brain with contrast including thin section posterior fossa images for further evaluation. 2. Global cortical atrophy and moderate chronic white matter microangiopathy. 3. Right midbrain and right pontine atrophy indicative of old ischemia. I spoke to nurse Matthew Hilliard regarding these findings on 12/13/16 at 1:20 PM. ANGE TSE
[2016-12-13] MEDS: LEVEMIR SUB-Q SCH (13:36)
[2016-12-13] MEDS: IMDUR PO SCH (13:37)
[2016-12-13] MEDS ORDERED: NACL 0.9 (PRIMING MACHINE ONLY DIALYSIS) MC ONE (19:04)
[2016-12-14 04:45] LABS: Hematocrit 27.4 % (30.3-42.9); Hemoglobin 9.2 gm/dl (10.1-14.3); Mean Corpuscular HGB Conc 34 % (30-34); Mean Corpuscular Hemoglobin 31 pg (28-32); Mean Corpuscular Volume 92 fl (79-97); Platelet Count 159 K/mm3 (140-440); Red Blood Count 2.99 M/mm3 (3.65-5.03); Red Cell Distribution Width 15.3 % (13.2-15.2); White Blood Count 8.6 K/mm3 (4.5-11.0)
[2016-12-14 05:03] LABS: Calcium 8.7 mg/dL (8.4-10.2); Phosphorous 2.3 mg/dL (2.5-4.5)
[2016-12-14 05:04] LABS: Chloride 93.5 mmol/L (98-107); Potassium 3.7 mmol/L (3.6-5.0)
--- NOTE | 2016-12-14 09:39 | Progress Note ---
Assessment and Plan - Patient Problems (1) Altered mental status Current Visit: Yes Status: Acute Qualifiers: Altered mental status type: A Coma depth: C Coma timing: C Plan to address problem: Heat CT negative. MRI of brain revealed Acute/subacute right cerebellar lacunar infarct with Petechial hemorrhage versus tiny right cerebellar hemorrhages. MRI of brain with contrast for further evaluation per report. Neurology consulted (2) ESRD on hemodialysis Current Visit: Yes Status: Chronic Plan to address problem: Received hemodialysis yesterday for UF and clearance Hemodialysis again today only after MRI of brain with contrast is completed Fluid restriction of 1 liter per day Renally dose medications Obtain daily weights Renal diet Assess dialysis needs daily (3) Type 2 diabetes mellitus Current Visit: Yes Status: Chronic Qualifiers: Diabetes mellitus complication status: without complication Diabetes mellitus complication detail: D Diabetic retinopathy severity: D Proliferative retinopathy type: P Diabetes mellitus macular edema: D Diabetes mellitus rodent exterminator insulin use: unspecified mcc insulin use status Laterality: L Chronic kidney disease stage: C Qualified Code(s): E11.9 - Type 2 diabetes mellitus without complications Plan to address problem: On Insulin as per Attending (4) Hypertensive CKD (chronic kidney disease) Current Visit: No Status: Chronic Plan to address problem: Continue on anti-hypertensive agents Subjective Date of service: 12/14/16 Principal diagnosis: ESRD Interval history: Patient is off floor undergoing an Echocardiogram Objective - Vital Signs Vital signs: Vital Signs - 12hr 12/13/16 12/14/16 12/14/16 21:40 00:07 00:30 Temperature 99.9 F H Pulse Rate 68 68 73 Respiratory Rate Blood Pressure 166/68 Blood Pressure 144/62 [Right] O2 Sat by Pulse Oximetry 12/14/16 05:17 Temperature 101.0 F H Pulse Rate 72 Respiratory 20 Rate Blood Pressure Blood Pressure 159/88 [Right] O2 Sat by Pulse 100 Oximetry - Lab 12/14/16 04:14 12/14/16 04:14 Most recent lab results Calcium 8.7 mg/dL (8.4-10.2) 12/14/16 04:14 Phosphorus 2.30 mg/dL (2.5-4.5) L 12/14/16 04:14 Magnesium 2.00 mg/dL (1.7-2.3) 12/12/16 16:44
[2016-12-14] MEDS: NOVOLOG SUB-Q SCH ×6 (10:05→22:33)
[2016-12-14] MEDS: RENVELA PO SCH ×3 (12:17→17:06)
[2016-12-14] MEDS: IMDUR PO SCH (12:19)
[2016-12-14] MEDS: LOVENOX SUB-Q SCH (12:19)
[2016-12-14] MEDS: PLAVIX PO SCH (12:19)
[2016-12-14] MEDS: COREG PO SCH ×2 (12:20→22:36)
[2016-12-14] MEDS: ZESTRIL PO SCH (12:20)
[2016-12-14] MEDS: ALDACTONE PO SCH (12:20)
[2016-12-14] MEDS: LASIX PO SCH ×2 (12:20→22:34)
[2016-12-14] MEDS: LEVEMIR SUB-Q SCH (12:21)
[2016-12-14] MEDS: PEPCID PO SCH (12:21)
[2016-12-14] MEDS: NEURONTIN PO SCH ×3 (12:26→22:45)
--- NOTE | 2016-12-14 16:34 | Progress Note ---
Assessment and Plan 61-year-old female with past medical history significant for end-stage renal disease on hemodialysis, diabetes mellitus, hypertension, CHF presented to the emergency department for the c/o altered mental status that happened around midday. All of a sudden the patient stopped responding, there is no seizure activity, no drooling with saliva, not incontinent, but had slurred speech after that. That has been going on for about 10 minutes. Patient normally doesn't ambulate and her upper and lower extremities are weak. - Acute right cerebellar infarction: MRI of the ravin showed right acure/ subacute infarction. Continue with ASA, Statin, PT/OT, ozxygen to keep sat => 94 %. ECHO - Metabolic encephalopathy-improved - Hyponatremia- Corrected - ESRD on hemodialysis. 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 - Sliding-scale insulin, basal insulin, Accu-Chek, adjust insulin as needed DVT prophylaxis - Heparin Disposition: Full Stroke protocol with ECHO. For possilbe rehab placement Subjective Date of service: 12/14/16 Principal diagnosis: ESRD, acute stoke Interval history: Still unsabel in her gait Objective - Constitutional Vitals: Vital Signs - 12hr 12/14/16 12/14/16 12/14/16 05:17 09:00 10:39 Temperature 101.0 F H Pulse Rate 72 80 Respiratory 20 Rate Blood Pressure 159/88 [Right] O2 Sat by Pulse 100 92 Oximetry 12/14/16 12/14/16 10:46 16:22 Temperature 98.6 F Pulse Rate 66 78 Respiratory 18 Rate Blood Pressure 112/60 [Right] O2 Sat by Pulse 96 Oximetry General appearance: Present: no acute distress, well-nourished - EENT Eyes: PERRL, EOM intact - Neck Neck: supple, normal ROM - Respiratory Respiratory effort: normal Respiratory: bilateral: CTA - Cardiovascular Rhythm: regular Heart Sounds: Present: S1 & S2. Absent: gallop, rub Extremities: pulses intact, No edema, normal color, Full ROM - Gastrointestinal General gastrointestinal: Present: soft, non-tender, non-distended, normal bowel sounds - Integumentary Integumentary: clear, warm, dry - Musculoskeletal Musculoskeletal: 1, strength equal bilaterally - Neurologic Neurologic: moves all extremities - Psychiatric Psychiatric: memory intact, appropriate mood/affect, intact judgment & insight - Labs CBC & Chem 7: 12/14/16 04:14 12/14/16 04:14 Labs: Abnormal lab results 12/13/16 12/13/16 12/14/16 Range/Units 16:32 22:49 04:14 RBC 2.99 L (3.65-5.03) M/mm3 Hgb 9.2 L (10.1-14.3) gm/dl Hct 27.4 L (30.3-42.9) % RDW 15.3 H (13.2-15.2) % Chloride (98-107) mmol/L Carbon Dioxide (22-30) mmol/L BUN (7-17) mg/dL Creatinine (0.7-1.2) mg/dL POC Glucose 276 H 195 H (70-105) Phosphorus (2.5-4.5) mg/dL 12/14/16 Range/Units 04:14 RBC (3.65-5.03) M/mm3 Hgb (10.1-14.3) gm/dl Hct (30.3-42.9) % RDW (13.2-15.2) % Chloride 93.5 L (98-107) mmol/L Carbon Dioxide 31 H (22-30) mmol/L BUN 18 H (7-17) mg/dL Creatinine 2.9 H (0.7-1.2) mg/dL POC Glucose (70-105) Phosphorus 2.30 L (2.5-4.5) mg/dL
[2016-12-15 05:30] LABS: Basophils % (Auto) 0.3 % (0.0-1.8); Eosinophils % (Auto) 1.6 % (0.0-4.3); Hematocrit 28.5 % (30.3-42.9); Hemoglobin 9.5 gm/dl (10.1-14.3); Mean Corpuscular HGB Conc 33 % (30-34); Mean Corpuscular Hemoglobin 30 pg (28-32); Mean Corpuscular Volume 91 fl (79-97); Platelet Count 178 K/mm3 (140-440); Red Blood Count 3.13 M/mm3 (3.65-5.03); Red Cell Distribution Width 15.2 % (13.2-15.2); White Blood Count 8.1 K/mm3 (4.5-11.0)
[2016-12-15 05:40] LABS: Albumin 2.9 g/dL (3.9-5); Albumin/Globulin Ratio 0.8 %; Bilirubin,Total 0.3 mg/dL (0.1-1.2); Calcium 8.9 mg/dL (8.4-10.2); Total Protein 6.5 g/dL (6.3-8.2)
[2016-12-15] MEDS: NOVOLOG SUB-Q SCH (08:56)
[2016-12-15] MEDS ORDERED: NACL 0.9% 100 ML IV PRN (09:00)
[2016-12-15] MEDS: LEVEMIR SUB-Q SCH (09:06)
--- NOTE | 2016-12-15 09:27 | Magnetic Resonance Report ---
FINAL REPORT PROCEDURE: MR BRAIN W CON TECHNIQUE: Consent was obtained. 15 milliliters MultiHance IV gadolinium was administered and axial and coronal T1 weighted images were obtained through the brain. HISTORY: cva COMPARISON: MRI brain 12/14/2016 FINDINGS: The study is partially motion compromised. There is however no suspected enhancing intra or extra-axial mass. There is no leptomeningeal abnormality. The deep venous sinuses and cavernous sinuses enhance normally. IMPRESSION: No enhancing intra or extra-axial mass.
[2016-12-15] MEDS ORDERED: NACL 0.9 (PRIMING MACHINE ONLY DIALYSIS) MC ONE (11:09)
--- NOTE | 2016-12-15 12:03 | Discharge Summary ---
Providers - Providers Date of Admission: 12/12/16 21:45 Attending physician: ABRAHAM MCGINNIS MD 12/12/16 Consult to Physician [CONS] Routine Consulting Provider: EMETERIO DELACRUZ Reason For Exam: AMS Place consult to:: Neurology Notified:: service Phone number called:: [phone] Was contact made?: Yes If yes, spoke with:: tea Time called:: 09:51 Comment:: recalled on 12-[address] Mcginnis 12/12/16 23:00 Consult to Wound/ET Nurse [CONS] Stat Reason For Exam: wound eval 12/12/16 23:35 Consult to Physician [CONS] Routine Consulting Provider: DORON SIMS Reason For Exam: ESRD on HD Place consult to:: Nephrology Notified:: chad Phone number called:: [phone] Was contact made?: Yes If yes, spoke with:: chad Time called:: 11:44 12/12/16 23:36 Consult to Dietitian/Nutrition [CONS] Routine Physician Instructions: Reason For Exam: Reason for Consult: Malnutrition 12/12/16 23:38 Consult to Case Management [CONS] Routine Services Needed at Discharge: Physical Therapy Notified:: case mngt Consult to Dietitian/Nutrition [CONS] Routine Physician Instructions: Reason For Exam: Reason for Consult: Nutrition Recommendations Reason for Consult: Malnutrition Occupational Therapy Evaluate and Treat [CONS] Routine Comment: Reason For Exam: Neuro deficits Physical Therapy Evaluation and Treat [CONS] Routine Comment: Reason For Exam: Neuro deficits Speech Therapy Evaluation and Treat [CONS] Routine Reason For Exam: swallow eval Primary care physician: CLINICAL NURSING INSTRUCTOR Hospitalization Condition: Stable Hospital course: 61-year-old female with past medical history significant for end-stage renal disease on hemodialysis, diabetes mellitus, hypertension, CHF presented to the emergency department for the c/o altered mental status that happened around midday. All of a sudden the patient stopped responding, there is no seizure activity, no drooling with saliva, not incontinent, but had slurred speech after that. That has been going on for about 10 minutes. Patient normally doesn't ambulate and her upper and lower extremities are weak. - Acute right cerebellar infarction: MRI of the ravin showed right acure/ subacute infarction. Continue with ASA, Statin, PT/OT, ozxygen to keep sat => 94 %. ECHO - Metabolic encephalopathy-improved - Hyponatremia- Corrected - ESRD on hemodialysis. pipe roller following - DM with hyperglycemia: SSI and ADA/renal diet - Chronic appearing bilateral leg wound with no infection- I spoke with daughter who states patient has a assistant store leader that cares for the feet and is aware of the wound. - Sliding-scale insulin, basal insulin, Accu-Chek, adjust insulin as needed CHF, unspecified HTN - Stop abx, no evidence of infection,. Chest xray concerning for fluid overload. - CONTINUE LASIX, ALDACTONE Disposition: [id number]/[place]-[id number] [facility] Time spent for discharge: 35 mins Core Measure Documentation - Palliative Care Palliative Care/ Comfort Measures: Not Applicable - Core Measures Any of the following diagnoses?: none - VTE Discharge Requirements Deep Vein Thrombosis/Pulmonary Embolism Present on Admission: No Exam - Physical Exam Narrative exam: VITAL SIGNS: Reviewed. GENERAL: The patient appeared well nourished and normally developed. Vital signs as documented. HEAD: No signs of head trauma. EYES: Pupils are equal. Extraocular motions intact. EARS: Hearing grossly intact. MOUTH: Oropharynx is normal. NECK: No adenopathy, no JVD. CHEST: Chest with clear breath sounds bilaterally. No wheezes, rales, or rhonchi. CARDIAC: Regular rate and rhythm. S1 and S2, without murmurs, gallops, or rubs. VASCULAR: No Edema. Peripheral pulses normal and equal in all extremities. ABDOMEN: Soft, without detectable tenderness. No sign of distention. No rebound or guarding, and no masses palpated. Bowel Sounds normal. MUSCULOSKELETAL: Good range of motion of all major joints. Extremities without clubbing, cyanosis or edema. NEUROLOGIC EXAM: Alert and oriented x 3. No focal sensory or strength deficits. Speech normal. Follows commands. PSYCHIATRIC: Mood normal. SKIN: b/l heel necrotic tissue with no erythema, - Constitutional Vitals: Temp Pulse Resp BP Pulse Ox 98.5 F 66 18 108/54 96 12/15/16 11:15 12/15/16 11:15 12/15/16 11:15 12/15/16 11:15 12/15/16 09:28 Plan Activity: advance as tolerated, fall precautions Diet: diabetic, renal Special Instructions: record daily weights, record daily BP diary, record blood sugar diary Follow up with: PRIMARY CARE, [Primary Care Provider] - 3-5 Days EMETERIO DELACRUZ MD [Staff Physician] - 7 Days REJI WALTER MD [Staff Physician] - 7 Days
--- NOTE | 2016-12-15 14:05 | Progress Note ---
Assessment and Plan - Patient Problems (1) Altered mental status Current Visit: Yes Status: Acute Qualifiers: Altered mental status type: A Coma depth: C Coma timing: C Plan to address problem: Heat CT negative. MRI of brain revealed Acute/subacute right cerebellar lacunar infarct with Petechial hemorrhage versus tiny right cerebellar hemorrhages. MRI of brain with contrast for further evaluation per report. MRI of brain with contrast was done yesterday and was negative. Neurology consulted (2) ESRD on hemodialysis Current Visit: Yes Status: Chronic Plan to address problem: Hemdialysis today for UF and clearance Fluid restriction of 1 liter per day Renally dose medications Obtain daily weights Renal diet Assess dialysis needs daily (3) Type 2 diabetes mellitus Current Visit: Yes Status: Chronic Qualifiers: Diabetes mellitus complication status: without complication Diabetes mellitus complication detail: D Diabetic retinopathy severity: D Proliferative retinopathy type: P Diabetes mellitus macular edema: D Diabetes mellitus prison insulin use: unspecified prison insulin use status Laterality: L Chronic kidney disease stage: C Qualified Code(s): E11.9 - Type 2 diabetes mellitus without complications Plan to address problem: On Insulin as per Attending (4) Hypertensive CKD (chronic kidney disease) Current Visit: No Status: Chronic Plan to address problem: Continue on anti-hypertensive agents Subjective Date of service: 12/15/16 Principal diagnosis: ESRD, acute stoke Interval history: Patient seen lying in bed with granddson at bedside. Mental status at baseline. Objective - Vital Signs Vital signs: Vital Signs - 12hr 12/15/16 12/15/16 12/15/16 06:15 09:28 09:45 Temperature 100.1 F H 97.9 F Pulse Rate 76 77 69 Respiratory 18 16 Rate Blood Pressure 163/81 Blood Pressure 150/87 194/85 [Right] O2 Sat by Pulse 99 96 Oximetry 12/15/16 12/15/16 12/15/16 10:00 10:15 10:30 Temperature Pulse Rate 71 69 69 Respiratory Rate Blood Pressure 143/64 131/70 128/64 Blood Pressure [Right] O2 Sat by Pulse Oximetry 12/15/16 12/15/16 12/15/16 10:45 11:00 11:15 Temperature 98.5 F Pulse Rate 68 66 66 Respiratory 18 Rate Blood Pressure 122/66 117/63 108/54 Blood Pressure [Right] O2 Sat by Pulse Oximetry 12/15/16 12/15/1617 11:30 11:45 12:00 Temperature Pulse Rate 65 65 64 Respiratory Rate Blood Pressure 100/51 135/50 136/56 Blood Pressure [Right] O2 Sat by Pulse Oximetry 12/15/16 12/15/16 12/15/16 12:15 12:30 12:45 Temperature Pulse Rate 64 68 63 Respiratory Rate Blood Pressure 110/73 166/83 93/68 Blood Pressure [Right] O2 Sat by Pulse Oximetry 12/15/16 12/15/16 13:04 13:44 Temperature 98.1 F 98.6 F Pulse Rate 68 73 Respiratory 20 18 Rate Blood Pressure 157/82 Blood Pressure 155/84 [Right] O2 Sat by Pulse 96 Oximetry - General Appearance General appearance: well-developed, appears stated age EENT: ATNC, PERRL, hearing intact, vision intact Neck: no JVD, supple Respiratory: Present: Clear to Ascultation Cardiology: regular, S1S2 Gastrointestinal: normoactive bowel sounds Integumentary: warm and dry Neurologic: alert and oriented x3 Musculoskeletal: no deformities, no erythema, no cyanosis, no clubbing Psychiatric: cooperative - Lab 12/15/16 04:55 12/15/16 04:55 Most recent lab results Calcium 8.9 mg/dL (8.4-10.2) 12/15/16 04:55 Phosphorus 2.30 mg/dL (2.5-4.5) L 12/14/16 04:14 Magnesium 2.00 mg/dL (1.7-2.3) 12/12/16 16:44
--- NOTE | 2016-12-15 15:22 | Consultation ---
History of Present Illness - Reason for Consult Consult date: 12/15/16 stroke - History of Present Illness went over the MRI report and I doubt this is bleed based on fact the initial CT of the head showed only chronic changes... there can be no contrast given ased on RF state of the patient plan repeat CT of head in 2 days plan to check EEG thanks for the consult spoke to the son explained neuro diagnosis full note is dictated Past History Past Medical History: ESRD, heart failure, hypertension Past Surgical History: Other (AVF, port cath) Social history: no significant social history Medications and Allergies Allergies Allergy/AdvReac Type Severity Reaction Status Date / Time No Known Allergies Allergy Verified 12/12/16 16:18 Home Medications Medication Instructions Recorded Confirmed Last Taken Type Aspirin [Aspirin EC] 81 mg PO DAILY 12/12/16 12/12/16 Unknown History AtorvaSTATin [Lipitor] 40 mg PO QHS 12/12/16 12/12/16 Unknown History Carvedilol [Coreg] 12.5 mg PO BID 12/12/16 12/12/16 Unknown History Furosemide [Lasix TAB] 40 mg PO BID 12/12/16 12/12/16 Unknown History Gabapentin [Neurontin] 100 mg PO TID 12/12/16 12/12/16 Unknown History ISOSORBIDE MONOnitrate [Imdur ER] 30 mg PO DAILY 12/12/16 12/12/16 12/12/16 History Lisinopril [Zestril TAB] 20 tab PO DAILY 12/12/16 12/12/16 Unknown History Plavix 75 mg PO DAILY 12/12/16 12/12/16 Unknown History Ranitidine HCl [Zantac 150 MG TAB] 150 mg PO DAILY 12/12/16 12/12/16 Unknown History Sevelamer Carbonate [Renvela] 800 mg PO AC 12/12/16 12/12/16 Unknown History Spironolactone [Aldactone] 25 mg PO DAILY 12/12/16 12/12/16 Unknown History dimenhyDRINATE [Motion Sickness] 50 mg PO DAILY 12/12/16 12/12/16 Unknown History Active Meds: Active Medications Acetaminophen (Tylenol) 650 mg PO Q4H PRN PRN Reason: Pain, Mild (1-3) Last Admin: 12/14/16 06:02 Dose: 650 mg Atorvastatin Calcium (Lipitor) 40 mg PO QHS [facility] Last Admin: 12/14/16 22:32 Dose: 40 mg Bisacodyl (Dulcolax) 10 mg OR QDAY PRN PRN Reason: Constipation Carvedilol (Coreg) 12.5 mg PO BID [facility] Last Admin: 12/14/16 22:36 Dose: 12.5 mg Clopidogrel Bisulfate (Plavix) 75 mg PO DAILY [facility] Last Admin: 12/14/16 12:19 Dose: 75 mg Dextrose (D50w (25gm) Vial) 50 gm IV PRN PRN PRN Reason: Hypoglycemia Enoxaparin Sodium (Lovenox) 30 mg SUB-Q QDAY [facility] Last Admin: 12/14/16 12:19 Dose: 30 mg Famotidine (Pepcid) 20 mg PO QAM [facility] Last Admin: 12/14/16 12:21 Dose: 20 mg Furosemide (Lasix) 40 mg PO BID [facility] Last Admin: 12/14/16 22:34 Dose: 40 mg Gabapentin (Neurontin) 100 mg PO TID [facility] Last Admin: 12/14/16 22:45 Dose: 100 mg Sodium Chloride (Nacl 0.9%) 100 mls @ 999 mls/hr IV JYOTSNA PRN PRN Reason: Hypotension Insulin Aspart (Novolog) 0 units SUB-Q ACHS [facility] PRN Reason: Protocol Last Admin: 12/15/16 08:56 Dose: Not Given Insulin Detemir (Levemir) 20 units SUB-Q QAMDIAB [facility] Last Admin: 12/15/16 09:06 Dose: 20 units Isosorbide Mononitrate (Imdur) 30 mg PO DAILY [facility] Last Admin: 12/14/16 12:19 Dose: 30 mg Lisinopril (Zestril) 20 mg PO DAILY [facility] Last Admin: 12/14/16 12:20 Dose: 20 mg Magnesium Hydroxide (Milk Of Magnesia) 30 ml PO Q4H PRN PRN Reason: Constipation Last Admin: 12/14/16 22:30 Dose: 30 ml Metoclopramide HCl (Reglan) 5 mg PO Q6H PRN PRN Reason: Nausea And Vomiting Ondansetron HCl (Zofran) 4 mg IV Q8H PRN PRN Reason: N/V unrelieved by Reglan Promethazine HCl (Phenergan) 25 mg OR Q6H PRN PRN Reason: Nausea And Vomiting Sevelamer Carbonate (Renvela) 800 mg PO AC [facility] Last Admin: 12/14/16 17:06 Dose: 800 mg Sodium Chloride (Sodium Chloride Flush Syringe 10 Ml) 10 ml IV PRN PRN PRN Reason: LINE FLUSH Spironolactone (Aldactone) 25 mg PO DAILY [facility] Last Admin: 12/14/16 12:20 Dose: 25 mg Exam - Constitutional Vitals: Temp Pulse Resp BP Pulse Ox 98.6 F 73 18 155/84 96 12/15/16 13:44 12/15/16 13:44 12/15/16 13:44 12/15/16 13:44 12/15/16 13:44 Results - Labs CBC & Chem 7: 12/15/16 04:55 12/15/16 04:55 Labs: Abnormal lab results 12/14/16 12/14/16 12/14/16 Range/Units 08:22 12:28 16:53 RBC (3.65-5.03) M/mm3 Hgb (10.1-14.3) gm/dl Hct (30.3-42.9) % Seg Neutrophils % (40.0-70.0) % Chloride (98-107) mmol/L BUN (7-17) mg/dL Creatinine (0.7-1.2) mg/dL Glucose (65-100) mg/dL POC Glucose 59 L 113 H 287 H (70-105) Albumin (3.9-5) g/dL 12/14/16 12/15/16 12/15/16 Range/Units 22:01 04:55 04:55 RBC 3.13 L (3.65-5.03) M/mm3 Hgb 9.5 L (10.1-14.3) gm/dl Hct 28.5 L (30.3-42.9) % Seg Neutrophils % 75.6 H (40.0-70.0) % Chloride 92.0 L (98-107) mmol/L BUN 33 H (7-17) mg/dL Creatinine 4.1 H (0.7-1.2) mg/dL Glucose 140 H (65-100) mg/dL POC Glucose 305 H (70-105) Albumin 2.9 L (3.9-5) g/dL 12/15/16 12/15/16 Range/Units 07:59 13:38 RBC (3.65-5.03) M/mm3 Hgb (10.1-14.3) gm/dl Hct (30.3-42.9) % Seg Neutrophils % (40.0-70.0) % Chloride (98-107) mmol/L BUN (7-17) mg/dL Creatinine (0.7-1.2) mg/dL Glucose (65-100) mg/dL POC Glucose 128 H 227 H (70-105) Albumin (3.9-5) g/dL
[2016-12-15 16:50] VITALS: BP 96/57
--- NOTE | 2016-12-16 01:42 | Consultation ---
HISTORY OF PRESENT ILLNESS: This is a 61-year-old female who presents to the [facility] with a history of end-stage kidney disease, hypertension and diabetes, who presented with altered mental status, confusion, apparently was getting dialysis on Tuesdays, and Saturdays and she missed her dialysis and became acutely confused, did not know where she was and what was going on. In the interval, she also developed bilateral ulcerations on both of her heels. Her blood pressure on presentation was 145/67. This is a new problem with being acutely confused and she had on presentation to the Emergency Room, a CT scan of the head, which showed chronic ischemic and atrophic changes. MRI scan of the brain was reviewed by me and this MRI scan showed acute right cerebellar infarct with petechial hemorrhage versus tiny cerebellar hemorrhages and the vascular lesion in the right cerebellum. The patient had cortical atrophy, right pontine atrophy in the case of ischemia. PHYSICAL EXAMINATION: On my examination shows that she is weak on the right side. She has ataxia of the right arm, it hurts to sleep on her right side. There is difficulty with speech and understanding, had to use her son who speaks Icelandic to translate. She has difficulty following 2-stage commands. Some of this may be related to having bilateral decubitus ulcers, which are hemorrhagic on both heels, right greater than left. She has absent reflexes throughout, sensory loss, hypoesthesia, pinprick and light touch throughout. Visual amador are full. Pupils are briskly reactive to light. The patient has motor tone, which is reduced on the right side. IMPRESSION: 1. Acute stroke of cerebellum. 2. Chronic old strokes, basal ganglia. 3. Diabetic peripheral neuropathy. 4. Possible seizures. 5. End-stage renal disease with associated complications, hypertension, diabetes. PLAN: EEG. We cannot give her contrast. Given her situation with the renal status, gadolinium cannot be used. I would not recommend giving her IV contrast study. There is a small abnormality present. I would repeat the CT in 2 days to be sure that there is no hemorrhage associated with this. I plan to get an EEG. Otherwise, we will also check clotting studies. JOB# [id number] DANIEL/NTS
== END 2016-12-15 17:07 | DRG 64 ==
LOC: ED 15:38 → 4A 21:45
PROVIDERS: ADMIT Internal Medicine; ATTEND Internal Medicine
PROC: 5A1D70Z Performance of Urinary Filtration, Intermittent, Less than 6 Hours Per Day (ICD-10-PCS; principal; 2016-12-13)
PROC: 5A1D70Z Performance of Urinary Filtration, Intermittent, Less than 6 Hours Per Day (ICD-10-PCS; 2016-12-15)
DX: I63.9 Cerebral infarction, unspecified (principal); G93.41 Metabolic encephalopathy; N18.6 End stage renal disease; J18.9 Pneumonia, unspecified organism; E87.1 Hypo-osmolality and hyponatremia; I13.2 Hypertensive heart and chronic kidney disease with heart failure and with stage 5 chronic kidney disease, or end stage renal disease; E11.65 Type 2 diabetes mellitus with hyperglycemia; I50.9 Heart failure, unspecified; E11.22 Type 2 diabetes mellitus with diabetic chronic kidney disease; K21.9 Gastro-esophageal reflux disease without esophagitis; M19.90 Unspecified osteoarthritis, unspecified site; G43.909 Migraine, unspecified, not intractable, without status migrainosus; H40.9 Unspecified glaucoma; Y95 Nosocomial condition; E11.42 Type 2 diabetes mellitus with diabetic polyneuropathy; S81.802A Unspecified open wound, left lower leg, initial encounter; S81.801A Unspecified open wound, right lower leg, initial encounter; X58.XXXA Exposure to other specified factors, initial encounter; Y93.89 Activity, other specified; Z95.828 Presence of other vascular implants and grafts; Z79.899 Other long term (current) drug therapy; Z79.82 Long term (current) use of aspirin; Y92.89 Other specified places as the place of occurrence of the external cause; Y99.8 Other external cause status
CPT/HCPCS: 36415; 70450; 70551; 70552; 71010; 80048; 80053; 80061; 80307; 80320; 81001; 82140; 82962; 83735; 84100; 84443; 85025; 85027; 93005; 93010; 93306; 93880; 96365; 96375; 96376; A9270-GY; A9577; G0480; G8996-GN; G8997-GN; G8998-GN; J0456; J0696; J1650; J1815; J1818; J3370; J7030; J7050